=== PATIENT | female | born 1965 | race Caucasian/White ===

== ENCOUNTER 2017-02-16 16:39 | Emergency (ER) | payer MEDICAID, OTHER ==
[2017-02-16 16:42] VITALS: BP 116/57; PULSE 73; RESP 16; TEMP 98.4; O2SAT 99
[2017-02-16] MEDS ORDERED: TOPI25TA7 PO (17:02)
[2017-02-16] MEDS ORDERED: RANI150T PO (17:02)
[2017-02-16] MEDS ORDERED: OMEP40CA2 PO (17:02)
[2017-02-16] MEDS ORDERED: LEVO100T5 PO (17:02)
[2017-02-16] MEDS ORDERED: DIAZEPAM 2 MG TAB PO ONE (17:15)
[2017-02-16] MEDS ORDERED: MORPHINE SULFATE 2 MG/ML INJ IV PUSH ONE (17:15)
[2017-02-16] MEDS ORDERED: SODIUM CHLORIDE 0.9% FLUSH 10 ML FLUSH IVF PRN (17:15)
[2017-02-16] MEDS ORDERED: LORA0.5T PO (17:21)
[2017-02-16] MEDS ORDERED: CITA40TA4 PO (17:21)
[2017-02-16] MEDS ORDERED: ATOM60 PO (17:21)
[2017-02-16] MEDS ORDERED: VENL100T PO (17:21)
[2017-02-16] MEDS ORDERED: TRAM50TA PO (17:21)
[2017-02-16] MEDS ORDERED: LEVO125T4 PO (17:21)
[2017-02-16 17:23] VITALS: O2SAT 99
[2017-02-16 17:59] LABS: AUTOMATED NEUTROPHIL # 5.3 TH/MM3 (1.8-7.7); BASOPHIL % 0.6 % (0.0-2.0); EOSINOPHIL # 0.1 TH/MM3 (0-0.4); EOSINOPHIL % 1.8 % (0.0-4.0); HEMATOCRIT 32.8 % (35.0-46.0); HEMO FLAGS DIFF FINAL; LYMPH % 11.6 % (9.0-44.0); LYMPHOCYTE # 0.8 TH/MM3 (1.0-4.8); MEAN CELL VOLUME 91.8 FL (80.0-100.0); MEAN CORPUSCULAR HEMOGLOBIN 31.8 PG (27.0-34.0); MEAN CORPUSCULAR HGB CONC 34.6 % (32.0-36.0); MONO % 8.5 % (0.0-8.0); NEUT % 77.5 % (16.0-70.0); PLATELET COUNT 240 TH/MM3 (150-450); RED BLOOD COUNT 3.57 MIL/MM3 (4.00-5.30); RED CELL DISTRIBUTION WIDTH 13.1 % (11.6-17.2); WHITE BLOOD COUNT 6.9 TH/MM3 (4.0-11.0)
[2017-02-16 18:11] LABS: ALT (GPT) 17 U/L (10-53); ANION GAP 7 MEQ/L (5-15); AST (GOT) 13 U/L (15-37); BICARBONATE 26.7 MEQ/L (21.0-32.0); BLOOD UREA NITROGEN 13 MG/DL (7-18); CHLORIDE 106 MEQ/L (98-107); GLOMERULAR FILTRATION RATE 77 ML/MIN (>89); POTASSIUM 3.8 MEQ/L (3.5-5.1); SODIUM (NA) 140 MEQ/L (136-145)
[2017-02-16 18:15] LABS: ALKALINE PHOSPHATASE 96 U/L (45-117); APTT (PATIENT) 30.6 SEC (24.3-30.1); PROTHROMBIN TIME - PATIENT 10.2 SEC (9.8-11.6); TOTAL BILIRUBIN ADULT 0.3 MG/DL (0.2-1.0)
[2017-02-16] MEDS ORDERED: IOHEXOL 350 MG/ML 10 ML VIAL (for RAD DIAG) IVCONTRAST ONE (19:23)
--- NOTE | 2017-02-16 19:23 | PD ---
HPI Chief Complaint: Cardiac Complaint Time Seen by Provider: 16:58 Travel History International Travel<30 days: No Contact w/Intl Traveler<30days: No Traveled to known affect area: No History of Present Illness HPI Patient is a 51-year-old female comes in complaining of shortness of breath and palpitations. She says it started suddenly 4 days ago. She says she occasionally feels some pain to the center of her chest with it. She denies nausea or vomiting. She denies cough or cold. She is mostly bothered by feeling short of breath. She denies leg pain or swelling. She denies recent travel. She has history of throat cancer that was treated with radiation 2 years ago. She also has history of COPD, but she says this feels different and she has been using her albuterol without any relief. PFSH Past Medical History Cancer: Yes COPD: Yes GERD: Yes Thyroid Disease: Yes ?: Not Past Surgical History Section: Yes Other Surgery: Yes (previous trach) Social History Alcohol Use: Yes (ocassional) Tobacco Use: No (vapes) Substance Use: No Allergies-Medications (Allergen,Severity, Reaction): Coded Allergies: ciprofloxacin (Verified Allergy, Severe, 02/16/17) Reported Meds & Prescriptions Reported Meds & Active Scripts Active Reported Strattera (Atomoxetine HCl) 60 Mg Cap 60 Mg PO DAILY Levothyroxine (Levothyroxine Sodium) 125 Mcg Tab 125 Mcg PO EVERY OTHER DAY Effexor (Venlafaxine HCl) 100 Mg Tab 150 Mg PO DAILY Lorazepam 0.5 Mg Tab 0.5 Mg PO Q8H PRN Citalopram (Citalopram Hydrobromide) 40 Mg Tab 40 Mg PO DAILY Tramadol (Tramadol HCl) 50 Mg Tab 50 Mg PO Q4H PRN Levothyroxine (Levothyroxine Sodium) 100 Mcg Tab 100 Mcg PO EVERY OTHER DAY Topiramate 25 Mg Tab 15 Mg PO BID Omeprazole 40 Mg Cap 40 Mg PO DAILY Ranitidine (Ranitidine HCl) 150 Mg Tab 150 Mg PO BID Review of Systems Except as stated in HPI: all other systems reviewed are Neg General / Constitutional: No: Fever, Chills HENT: No: Headaches, Lightheadedness Cardiovascular: Positive: Palpitations Respiratory: Positive: Shortness of Breath Gastrointestinal: No: Nausea, Vomiting Genitourinary: No: Dysuria Musculoskeletal: No: Myalgias, Edema Skin: No Rash, No Change in Pigmentation Neurologic: No: Weakness, Dizziness Physical Exam Narrative GENERAL: Awake and alert, in no acute distress. SKIN: Focused skin assessment warm/dry. HEAD: Atraumatic. Normocephalic. EYES: Pupils equal and round. No scleral icterus. No injection or drainage. ENT: Mucous membranes pink and moist. NECK: Trachea midline. No JVD. CARDIOVASCULAR: Regular rate and rhythm. No murmur appreciated. RESPIRATORY: No accessory muscle use. Clear to auscultation. Breath sounds equal bilaterally. GASTROINTESTINAL: Abdomen soft, non-tender, nondistended. MUSCULOSKELETAL: No obvious deformities. No clubbing. No cyanosis. No edema. NEUROLOGICAL: Awake and alert. No obvious cranial nerve deficits. Motor grossly within normal limits. Normal speech. PSYCHIATRIC: Appropriate mood and affect; insight and judgment normal. Data Data Last Documented VS Vital Signs Date Time Temp Pulse Resp B/P (MAP) Pulse Ox O2 Delivery O2 Flow Rate FiO2 02/16/17 17:23 99 Room Air 02/16/17 17:23 02/16/17 16:42 98.4 73 16 Orders Orders Complete Blood Count With Diff (02/16/17 17:10) Comprehensive Metabolic Panel (02/16/17 17:10) Act Partial Throm Time (Ptt) (02/16/17 17:10) Prothrombin Time / Inr (Pt) (02/16/17 17:10) Troponin I (02/16/17 17:10) Iv Access Insert/Monitor (02/16/17 17:10) Electrocardiogram (02/16/17 17:10) Ecg Monitoring (02/16/17 17:10) Oximetry (02/16/17 17:10) Oxygen Administration (02/16/17 17:10) Ct Pulmonary Angiogram (02/16/17 17:10) Sodium Chloride 0.9% Flush (Ns Flush) (02/16/17 17:15) Morphine Inj (Morphine Inj) (02/16/17 17:15) Diazepam (Valium) (02/16/17 17:15) Labs Laboratory Tests Test 02/16/17 17:37 White Blood Count 6.9 TH/MM3 Red Blood Count 3.57 MIL/MM3 Hemoglobin 11.3 GM/DL Hematocrit 32.8 % Mean Corpuscular Volume 91.8 FL Mean Corpuscular Hemoglobin 31.8 PG Mean Corpuscular Hemoglobin Concent 34.6 % Red Cell Distribution Width 13.1 % Platelet Count 240 TH/MM3 Mean Platelet Volume 8.2 FL Neutrophils (%) (Auto) 77.5 % Lymphocytes (%) (Auto) 11.6 % Monocytes (%) (Auto) 8.5 % Eosinophils (%) (Auto) 1.8 % Basophils (%) (Auto) 0.6 % Neutrophils # (Auto) 5.3 TH/MM3 Lymphocytes # (Auto) 0.8 TH/MM3 Monocytes # (Auto) 0.6 TH/MM3 Eosinophils # (Auto) 0.1 TH/MM3 Basophils # (Auto) 0.0 TH/MM3 CBC Comment DIFF FINAL Differential Comment Prothrombin Time 10.2 SEC Prothromb Time International Ratio 1.0 RATIO Activated Partial Thromboplast Time 30.6 SEC Blood Urea Nitrogen 13 MG/DL Creatinine 0.78 MG/DL Random Glucose 86 MG/DL Total Protein 7.1 GM/DL Albumin 3.6 GM/DL Calcium Level 8.7 MG/DL Alkaline Phosphatase 96 U/L Aspartate Amino Transf (AST/SGOT) 13 U/L Alanine Aminotransferase (ALT/SGPT) 17 U/L Total Bilirubin 0.3 MG/DL Sodium Level 140 MEQ/L Potassium Level 3.8 MEQ/L Chloride Level 106 MEQ/L Carbon Dioxide Level 26.7 MEQ/L Anion Gap 7 MEQ/L Estimat Glomerular Filtration Rate 77 ML/MIN Troponin I LESS THAN 0.02 NG/ML MDM Medical Decision Making Medical Screen Exam Complete: Yes Emergency Medical Condition: Yes Medical Record Reviewed: Yes Interpretation(s) ECG shows normal sinus rhythm at 66, incomplete right bundle-branch block Differential Diagnosis Electrolyte abnormality versus ACS versus PE Narrative Course Patient is a 51-year-old female who comes in complaining of shortness of breath and palpitations. Exam shows no acute abnormalities. Patient states she is feeling anxious and is requesting medication for pain and anxiety. IV established, labs sent. Labs show no acute abnormalities. Troponin is negative. CTA chest ordered to rule out PE. Patient given a dose of diazepam as well as morphine. Signed out to Dr. Craig to follow up testing and disposition the patient. Leeanne Ellington MD Feb 16, 2017 19:23
[2017-02-16 19:32] VITALS: BP 119/70; PULSE 69; RESP 16; O2SAT 100
--- NOTE | 2017-02-16 19:38 | RADRPT ---
EXAM DATE/TIME: 02/16/2017 19:08 [facility] COMPARISON: No previous studies available for comparison. INDICATIONS : Chest pain with shortness of breath. IV CONTRAST: 50 cc Omnipaque 350 (iohexol) IV RADIATION DOSE: 21.84 CTDIvol (mGy) MEDICAL HISTORY : Chronic obstructive pulmonary disease. SURGICAL HISTORY : None. ENCOUNTER: Initial ACUITY: 1 day PAIN SCALE: 5/10 LOCATION: chest TECHNIQUE: Volumetric scanning of the chest was performed using a pulmonary embolism protocol MIP images were re constructed. Using automated exposure control and adjustment of the mA and/or kV according to patien t size, radiation dose was kept as low as reasonably achievable to obtain optimal diagnostic quality images. DICOM format image data is available electronically for review and comparison. Follow-up recommendations for detected pulmonary nodules are based at a minimum on nodule size and pa tient risk factors according to Fleischner Society Guidelines. FINDINGS: PULMONARY ARTERIES: No filling defects are seen in the pulmonary arteries through the segmental level. LUNGS: There is no consolidation or pneumothorax . Tiny calcified granuloma is noted within the right apex. Minimal biapical scarring is noted. No concerning pulmonary nodule is visualized. PLEURAE: There is no pleural thickening or pleural effusion. MEDIASTINUM: There is good visualization of the great vessels of the middle mediastinum. No evidence of mediastin al or hilar adenopathy/mass. Minimal coronary artery calcifications are noted. MUSCULOSKELETAL: Degenerative changes and scoliosis of the thoracolumbar spine are noted. MISCELLANEOUS: The visualized upper abdominal organs demonstrate no acute abnormality. CONCLUSION: 1. No evidence of pulmonary embolism. 2. Minimal coronary artery calcifications. 3. Minimal biapical fibrotic scarring. 4. Degenerative changes and scoliosis of the thoraco-lumbar spine are noted. Kameron Moran MD on February 16, 2017 at 19:32 Board Certified Radiologist. This report was verified electronically.
--- NOTE | 2017-02-16 21:07 | PD ---
Physical Exam Date Seen by Provider: Feb 16, 2017 Time Seen by Provider: 19:30 Narrative CTA chest is negative no pulmonary embolism no infection just minor apical scarring bilateral from chronic COPD patient is stable sat on room air is 99% I discussed with her to take her meds as written and discussed use of vapor post for her nicotine as opposed to sneaking cigarettes in between just trying to stop Data Data Last Documented VS Vital Signs Date Time Temp Pulse Resp B/P (MAP) Pulse Ox O2 Delivery O2 Flow Rate FiO2 02/16/17 19:32 69 16 119/70 (86) 100 Room Air 02/16/17 16:42 98.4 Orders Orders Complete Blood Count With Diff (02/16/17 17:10) Comprehensive Metabolic Panel (02/16/17 17:10) Act Partial Throm Time (Ptt) (02/16/17 17:10) Prothrombin Time / Inr (Pt) (02/16/17 17:10) Troponin I (02/16/17 17:10) Iv Access Insert/Monitor (02/16/17 17:10) Electrocardiogram (02/16/17 17:10) Ecg Monitoring (02/16/17 17:10) Oximetry (02/16/17 17:10) Oxygen Administration (02/16/17 17:10) Ct Pulmonary Angiogram (02/16/17 17:10) Sodium Chloride 0.9% Flush (Ns Flush) (02/16/17 17:15) Morphine Inj (Morphine Inj) (02/16/17 17:15) Diazepam (Valium) (02/16/17 17:15) Iohexol 350 Inj (Omnipaque 350 Inj) (02/16/17 19:23) Labs Laboratory Tests Test 02/16/17 17:37 White Blood Count 6.9 TH/MM3 Red Blood Count 3.57 MIL/MM3 Hemoglobin 11.3 GM/DL Hematocrit 32.8 % Mean Corpuscular Volume 91.8 FL Mean Corpuscular Hemoglobin 31.8 PG Mean Corpuscular Hemoglobin Concent 34.6 % Red Cell Distribution Width 13.1 % Platelet Count 240 TH/MM3 Mean Platelet Volume 8.2 FL Neutrophils (%) (Auto) 77.5 % Lymphocytes (%) (Auto) 11.6 % Monocytes (%) (Auto) 8.5 % Eosinophils (%) (Auto) 1.8 % Basophils (%) (Auto) 0.6 % Neutrophils # (Auto) 5.3 TH/MM3 Lymphocytes # (Auto) 0.8 TH/MM3 Monocytes # (Auto) 0.6 TH/MM3 Eosinophils # (Auto) 0.1 TH/MM3 Basophils # (Auto) 0.0 TH/MM3 CBC Comment DIFF FINAL Differential Comment Prothrombin Time 10.2 SEC Prothromb Time International Ratio 1.0 RATIO Activated Partial Thromboplast Time 30.6 SEC Blood Urea Nitrogen 13 MG/DL Creatinine 0.78 MG/DL Random Glucose 86 MG/DL Total Protein 7.1 GM/DL Albumin 3.6 GM/DL Calcium Level 8.7 MG/DL Alkaline Phosphatase 96 U/L Aspartate Amino Transf (AST/SGOT) 13 U/L Alanine Aminotransferase (ALT/SGPT) 17 U/L Total Bilirubin 0.3 MG/DL Sodium Level 140 MEQ/L Potassium Level 3.8 MEQ/L Chloride Level 106 MEQ/L Carbon Dioxide Level 26.7 MEQ/L Anion Gap 7 MEQ/L Estimat Glomerular Filtration Rate 77 ML/MIN Troponin I LESS THAN 0.02 NG/ML MDM Supervised Visit with CATHERINE: No Diagnosis Primary Impression: Shortness of breath Patient Instructions: COPD (Chronic Obstructive Pulmonary Disease) (ED), General Instructions Disposition: 01 DISCHARGE HOME Condition: [place] Craig MD Feb 16, 2017 21:07
[2017-02-16 21:16] VITALS: BP 118/71; PULSE 55; RESP 16; O2SAT 97
--- NOTE | 2017-02-16 21:21 | EKG ---
Date Performed: 02/16/2017 Time Performed: 17:12:17 PTAGE: 51 years EKG: Sinus rhythm INCOMPLETE RIGHT BUNDLE BRANCH BLOCK BORDERLINE ECG NO PREVIOUS TRACING DOCTOR: Simone Kay Interpretating Date/Time 02/16/2017 21:20:12
== END 2017-02-16 21:22 | disposition home or self-care (01) ==
LOC: NEPE 16:39
DX: R06.02 Shortness of breath (principal); R00.2 Palpitations; R07.9 Chest pain, unspecified; R94.31 Abnormal electrocardiogram [ECG] [EKG]; J44.9 Chronic obstructive pulmonary disease, unspecified; K21.9 Gastro-esophageal reflux disease without esophagitis; E07.9 Disorder of thyroid, unspecified; Z85.89 Personal history of malignant neoplasm of other organs and systems
CPT/HCPCS: 71275; 80053; 84484; 85025; 85610; 85730; 93005; 96374; 99285; J2270; Q9967